=== PATIENT | male | born 1970 | race American Indian/Alaskan Native ===

== ENCOUNTER 2019-09-28 13:01 | Emergency (ER) | payer SELFPAY ==
[2019-09-28 13:30] VITALS: BP 133/86
[2019-09-28] MEDS ORDERED: ASPIRIN 81 MG TAB CHEW PO ONE (13:35)
--- NOTE | 2019-09-28 13:35 | Event Note ---
ED Screening Note Date of service: 09/28/19 Time: 13:34 ED Screening Note: Pt complains of chest pain x today radiating to right arm denies hx of VT/CVA/DVT/PE or HTN\ This initial assessment/diagnostic orders/clinical plan/treatment(s) is/are subject to change based on patients health status, clinical progression and re- assessment by fellow clinical providers in the ED. Further treatment and workup at subsequent clinical providers discretion. Patient/guardian urged not to elope from the ED as their condition may be serious if not clinically assessed and managed. Initial orders include: CXR labs
[2019-09-28] MEDS ORDERED: ASPIRIN 325 MG TAB ONE (13:39)
--- NOTE | 2019-09-28 13:59 | XRay Report ---
CHEST PA AND LATERAL VIEWS INDICATION: Chest Pain. COMPARISON: None. FINDINGS: Support devices: None. Heart: Within normal limits. Lungs/Pleura: No acute pulmonary or pleural findings. IMPRESSION: 1. No significant abnormality. Signer Name: Carl Vásquez MD Signed: 09/28/2019 1:55 PM Workstation Name: [id number]
[2019-09-28 15:29] LABS: Basophils % (Auto) 0.5 % (0.0-1.8); Eosinophils # (Auto) 0.1 K/mm3 (0.0-0.4); Eosinophils % (Auto) 0.8 % (0.0-4.3); Hematocrit 44.2 % (35.5-45.6); Hemoglobin 14.7 gm/dl (11.8-15.2); Lymphocytes # (Auto) 1.3 K/mm3 (1.2-5.4); Lymphocytes % (Auto) 19.5 % (13.4-35.0); Mean Corpuscular HGB Conc 33 % (32-34); Mean Corpuscular Volume 93 fl (84-94); Monocytes # (Auto) 0.3 K/mm3 (0.0-0.8); Monocytes % (Auto) 5.2 % (0.0-7.3); Platelet Count 185 K/mm3 (140-440); Red Blood Count 4.75 M/mm3 (3.65-5.03)
[2019-09-28 15:53] LABS: Alanine Aminotransferase 15 units/L (7-56); BUN/Creatinine Ratio 16; Blood Urea Nitrogen 13 mg/dL (9-20); Calcium 9.1 mg/dL (8.4-10.2); Hemolysis Index 21
== END 2019-09-28 19:20 | disposition left against medical advice (07) ==
LOC: ED 13:01
DX: R07.89 Other chest pain (principal); Z53.21 Procedure and treatment not carried out due to patient leaving prior to being seen by health care provider
CPT/HCPCS: 36415; 71046; 80053; 84484; 85025; 93005; 93010